=== PATIENT | male | born 1955 | race African-American/Black ===

== ENCOUNTER 2018-03-04 04:19 | Emergency (ER) | payer MEDICARE, MEDICAID ==
[~2018-03-04] VITALS: Ht 180.3 cm; Wt 90.0 kg
[2018-03-04] MEDS ORDERED: LIDOCAINE HCL 1% 20ML VIAL (Pyxis) INJ MC ONE (07:00)
[2018-03-04] MEDS ORDERED: TETANUS, DIPHTHERIA, PERTUSSIS VAC/PF 0.5ML (>7YR OLD) IM ONE (07:00)
[2018-03-04] MEDS ORDERED: BACITRACIN ZINC OINT UDPKT TOP ONE (07:00)
[2018-03-04] MEDS ORDERED: ACETAMINOPHEN WITH CODEINE 300/30MG TABLET PO ONE (07:00)
[2018-03-04] MEDS ORDERED: LIDOCAINE HCL/PF 1% 10 MG/ML 5ML VIAL IJ NR (08:20)
[2018-03-04 12:20] VITALS: BP 137/91
== END 2018-03-04 12:24 | disposition home or self-care (01) ==
LOC: ER 04:19
DX: S01.01XA Laceration without foreign body of scalp, initial encounter (principal); S00.83XA Contusion of other part of head, initial encounter; Y04.2XXA Assault by strike against or bumped into by another person, initial encounter; Y93.89 Activity, other specified; Y92.89 Other specified places as the place of occurrence of the external cause; Z23 Encounter for immunization
CPT/HCPCS: 12004; 70450; 90471; 90715; 99284; J3490

== ENCOUNTER 2018-03-27 10:44 | Emergency (ER) | payer MEDICARE, MEDICAID ==
[~2018-03-27] VITALS: Ht 180.3 cm; Wt 100.0 kg
[2018-03-27 11:10] VITALS: BP 158/86
== END 2018-03-27 11:58 | disposition home or self-care (01) ==
LOC: ER 11:46
DX: Z48.02 Encounter for removal of sutures (principal)
CPT/HCPCS: 99281